=== PATIENT | male | born 1935 | race Caucasian/White ===

== ENCOUNTER 2018-02-14 06:12 | Day surgery (SDC) | payer MEDICARE ==
[2018-02-14] MEDS ORDERED: Lactated Ringers 1,000 ML IV SCH (07:00)
[2018-02-14] MEDS ORDERED: Propofol 200 MG/20 ML SDV ONE (07:22)
[2018-02-14] MEDS ORDERED: fentaNYL 100 MCG/2 ML SDV ONE (07:22)
[2018-02-14] MEDS ORDERED: Midazolam 1 MG/ML 2 ML SDV ONE (07:22)
[2018-02-14] MEDS ORDERED: Scopolamine 1.5 MG Transdermal Patch TOP ONE (07:30)
[2018-02-14] MEDS ORDERED: Glycopyrrolate 0.2 MG/ML 2 ML SDV ONE (07:59)
[2018-02-14 10:08] VITALS: BP 127/81
--- NOTE | 2018-02-14 10:28 | OR ---
DATE OF PROCEDURE: 02/14/2018 PREOPERATIVE DIAGNOSIS: History of tubular adenomas. POSTOPERATIVE DIAGNOSES: Five small colon polyps, history of tubular adenomas, diverticulosis. PROCEDURE PERFORMED: Colonoscopy to the cecum with biopsy resection of small polyps at transverse colon, proximal transverse colon, hepatic flexure, distal right colon, and right colon. ANESTHESIA: IV anesthesia with monitored anesthesia care. INDICATION: This 82-year-old white male is referred for a colonoscopy because of a history of tubular adenomas. His last colonoscopic exam he says was done 3 years ago. I counseled him for the procedure including risks and alternatives, and he gave his informed consent to proceed. DESCRIPTION OF PROCEDURE: The patient was placed in the left lateral decubitus position. IV anesthesia was administered by the Anesthesia Service. Time-out was held. A rectal exam was performed, which was unremarkable. The flexible video Olympus colonoscope was introduced through his anus, up his rectum, and out his colon all way to the cecum. En route, we saw multiple, totalling five small polyps. The first was encountered in the transverse colon, removed with the biopsy forceps. In the proximal transverse colon, another one was seen which was removed with the biopsy forceps. The hepatic flexure, distal right colon, and right colon areas also saw small polyps which were removed with the biopsy forceps. They were all sent separately to the laboratory. Once the cecum was reached, the scope was slowly withdrawn, examining the mucosa throughout. We did see a couple of right- sided diverticula. There was no bleeding or inflammation associated with them. The scope was then withdrawn with no other lesions noted. The scope was retroflexed in the rectum with the distal rectum appearing unremarkable. The scope was straightened and removed. He tolerated the procedure well. Christian Roberts MD /[id number]
== END 2018-02-14 10:09 | disposition home or self-care (01) ==
LOC: JP.SDS 06:12
PROVIDERS: ATTEND Surgery
DX: Z12.11 Encounter for screening for malignant neoplasm of colon (principal); D12.3 Benign neoplasm of transverse colon; K57.30 Diverticulosis of large intestine without perforation or abscess without bleeding; K21.9 Gastro-esophageal reflux disease without esophagitis; E78.5 Hyperlipidemia, unspecified; E11.9 Type 2 diabetes mellitus without complications; Z88.0 Allergy status to penicillin; Z88.6 Allergy status to analgesic agent; Z88.8 Allergy status to other drugs, medicaments and biological substances; Z91.013 Allergy to seafood; Z86.010 Personal history of colon polyps
CPT/HCPCS: 45380; 88305; A9270; J2250; J2704; J3010; J7120; J3490

== ENCOUNTER 2021-02-21 08:40 | Day surgery (SDC) | payer MEDICARE ==
[~2021-02-21 08:40] MED LIST: Midazolam 1 MG/ML 2 ML SDV ONE; Propofol 200 MG/20 ML SDV ONE; fentaNYL 100 MCG/2 ML SDV ONE
[2021-02-21] MEDS: Sodium Chloride 0.9% 1,000 ML IV SCH (09:24)
[2021-02-21] MEDS ORDERED: Atropine 0.4 MG/ML SDV ONE (10:12)
[2021-02-21 11:32] VITALS: BP 112/63; PULSE 60
--- NOTE | 2021-02-21 14:05 | OR ---
DATE OF PROCEDURE: 02/21/2021 SURGEON: Maciej Huerta MD PROCEDURE: Colonoscopy. FINDINGS: 1. Ascending colon polyp, approximately 1 cm, completely removed using hot snare wire device. 2. Transverse colon polyp, approximately 5 mm, completely removed using cold biopsy forceps. COMPLICATIONS: None. OPERATOR TECHNICIAN: None. ANESTHESIA: MAC. PREOPERATIVE DIAGNOSIS: Screening colonoscopy. POSTOPERATIVE DIAGNOSIS: Screening colonoscopy. RISKS: Risks, benefits, alternatives, and limitations including, but not limited to infection, bleeding, perforation, false positives and false negatives were explained to the patient who wished to proceed. PROCEDURE IN DETAIL: The patient was placed in left lateral decubitus position. Digital rectal exam was performed without abnormality. Scope was introduced and advanced atraumatically to the ileocecal valve. A photo was taken of this. Scope was brought back to the ascending, transverse, descending colon, and retroflexed. No evidence of old or new blood. No masses. The aforementioned polyps were identified and completely removed. No diverticulosis. No abnormalities on retroflexion. The prep was acceptable, approximately 90% of the luminal surface could be seen. Greater than 8 minutes was spent removing the scope. The patient tolerated the procedure well. Maciej Huerta MD /[id number]
== END 2021-02-21 11:35 | disposition home or self-care (01) ==
LOC: JP.SDS 08:40
PROVIDERS: ATTEND Surgery
DX: Z12.11 Encounter for screening for malignant neoplasm of colon (principal); D12.2 Benign neoplasm of ascending colon; I12.9 Hypertensive chronic kidney disease with stage 1 through stage 4 chronic kidney disease, or unspecified chronic kidney disease; N18.30 Chronic kidney disease, stage 3 unspecified; E11.22 Type 2 diabetes mellitus with diabetic chronic kidney disease; Z88.0 Allergy status to penicillin; Z88.8 Allergy status to other drugs, medicaments and biological substances; Z91.013 Allergy to seafood; Z86.010 Personal history of colon polyps
CPT/HCPCS: 45380; 45385; 88305; J0461; J2250; J2704; J3010; J7030